=== PATIENT | male | born 1955 | race Caucasian/White ===

== ENCOUNTER 2020-09-29 12:00 | Inpatient (IN) | payer OTHER ==
[~2020-09-29] VITALS: Ht 175.3 cm; Wt 49.0 kg
[2020-09-29 14:59] LABS: RED BLOOD COUNT 4.84 M/UL (4.20-5.50); WHITE BLOOD COUNT 8.6 K/UL (4.5-11.0)
[2020-09-29 15:22] LABS: BUN/CREATININE RATIO 17 (0-10)
[2020-09-29] MEDS ORDERED: ASPIRIN EC81 MG PO (19:57)
[2020-09-29] MEDS ORDERED: IRBESARTAN75 MG PO (19:57)
[2020-09-30 04:25] LABS: HEMOGLOBIN 15.1 gm/dl (14.0-17.5); RED BLOOD COUNT 4.84 M/UL (4.20-5.50); WHITE BLOOD COUNT 7.3 K/UL (4.5-11.0)
[2020-09-30 04:47] LABS: BUN/CREATININE RATIO 21 (0-10)
[2020-10-02 02:51] LABS: BUN/CREATININE RATIO 29 (0-10)
[2020-10-03 06:27] LABS: BUN/CREATININE RATIO 27 (0-10)
[2020-10-03] MEDS ORDERED: DECADRON IM/I4 MG/ML PO (12:06)
--- NOTE | 2020-10-03 12:17 | NUR ---
1217 02 Sat. 96% on room air.
--- NOTE | 2020-10-03 13:07 | NUR ---
02 Sat 86% on room air.
== END 2020-10-03 12:04 | disposition home or self-care (01) | DRG 177 ==
LOC: ER1 12:00 → CDU 17:21 → MED SURG 4 09-30 15:35
PROVIDERS: Emergency Medicine; Physician Assistant; ADMIT Internal Medicine
PROC: 8E0ZXY6 Isolation (ICD-10-PCS; 2020-09-29)
PROC: XW033E5 Introduction of Remdesivir Anti-infective into Peripheral Vein, Percutaneous Approach, New Technology Group 5 (ICD-10-PCS; 2020-09-29)
PROC: XW13325 Transfusion of Convalescent Plasma (Nonautologous) into Peripheral Vein, Percutaneous Approach, New Technology Group 5 (ICD-10-PCS; principal; 2020-10-01)
DX: U07.1 COVID-19 (principal); J12.82 Pneumonia due to coronavirus disease 2019; J96.01 Acute respiratory failure with hypoxia; I10 Essential (primary) hypertension; Z79.82 Long term (current) use of aspirin; Z79.899 Other long term (current) drug therapy
CPT/HCPCS: 36415; 36600; 71045; 80048; 80053; 82803; 85025; 85610; 86900; 86901; 86927; 93005; 94760; 96365; 96366; 96367; 96368; 96372; 96375; 96376; 99285; G0378; J0696; J1100; J1650; J7030

== ENCOUNTER → 2020-10-27 | Outpatient (CLI) | payer OTHER ==
[~2020-10-27] MED LIST: ASPIRIN EC81 MG PO; DECADRON IM/I4 MG/ML PO; IRBESARTAN75 MG PO
== END ==
LOC: RAD 15:25
DX: R91.8 Other nonspecific abnormal finding of lung field (principal); B97.21 SARS-associated coronavirus as the cause of diseases classified elsewhere
CPT/HCPCS: 71046

== ENCOUNTER → 2021-02-04 | Outpatient (CLI) | payer OTHER | LOC: KOH-I 10:04 | DX: U07.1 COVID-19 (principal) | CPT/HCPCS: 71046 ==